=== PATIENT | male | born 1985 | race Two or more races ===

== ENCOUNTER 2019-11-17 02:55 | Emergency (ER) | payer SELFPAY ==
[~2019-11-17] VITALS: Ht 167.6 cm; Wt 59.0 kg
--- NOTE | 2019-11-17 03:33 | NUR ---
Pt presents to room reporting left lumbar pain for 1 month. Pt denies numbness, weakness, or tingling in lower extremities. Pt also denies loss of bowel or bladder control. Pt goes on to state they are in the process of transitioning from male to female and they have been taking hormone pills from a friend recently.
[2019-11-17] MEDS ORDERED: IBUPROFEN 600 MG TABLET ONE (03:56)
[2019-11-17] MEDS ORDERED: IBUPROFEN 600 MG TABLET PO ONE (04:00)
[2019-11-17 04:52] LABS: CULTURE INDICATED? NO; MICROSCOPIC NOT IND
[2019-11-17 06:04] VITALS: BP 140/97
== END 2019-11-17 06:07 | disposition home or self-care (01) ==
LOC: ED 05:58
DX: S39.012A Strain of muscle, fascia and tendon of lower back, initial encounter (principal); F14.10 Cocaine abuse, uncomplicated; Z21 Asymptomatic human immunodeficiency virus [HIV] infection status; Z72.9 Problem related to lifestyle, unspecified; F17.210 Nicotine dependence, cigarettes, uncomplicated; Z88.0 Allergy status to penicillin; X58.XXXA Exposure to other specified factors, initial encounter; Y93.89 Activity, other specified; Y92.89 Other specified places as the place of occurrence of the external cause; Y99.8 Other external cause status
CPT/HCPCS: 36415; 72110; 81003; 87806; 99284; G0475